=== PATIENT | male | born 1995 | race American Indian/Alaskan Native ===

== ENCOUNTER 2021-01-28 15:01 | Outpatient (CLI) | payer OTHER ==
--- NOTE | 2021-01-28 17:00 | XRay Report ---
AP STANDING VIEWS OF BOTH KNEES INDICATION / CLINICAL INFORMATION: 08498-05 AP VIEW KNEE PAIN COMPARISON: None available. FINDINGS: BONES / JOINT(S): No acute fracture or subluxation. No significant arthritis. The joint spaces of the medial and lateral compartments are maintained bilaterally. SOFT TISSUES: No significant abnormality. ADDITIONAL FINDINGS: None. Signer Name: Serge Corrigan MD Signed: 01/28/2021 4:55 PM Workstation Name: [id number]
== END 2021-01-28 15:02 | disposition home or self-care (01) ==
LOC: XRAY 15:01
PROVIDERS: ATTEND Internal Medicine
DX: M25.562 Pain in left knee (principal); M25.561 Pain in right knee
CPT/HCPCS: 73565